=== PATIENT | male | born 1980 | race Caucasian/White ===

== ENCOUNTER 2019-12-21 11:05 | Outpatient (CLI) | payer OTHER ==
--- NOTE | 2019-12-21 13:16 | RAD ---
RIGHT HAND 2 VIEWS: Date: 12/21/2019 HISTORY: Disability exam, right hand pain. FINDINGS/IMPRESSION: No bony abnormalities are identified. POS: [facility]
--- NOTE | 2019-12-21 13:16 | RAD ---
PA AND LATERAL VIEWS CHEST: Date: 12/21/2019 HISTORY: Disability exam. FINDINGS: The cardiomediastinum is normal. The lungs are well expanded and clear. The bony thorax is normal. IMPRESSION: Normal exam. POS: [facility]
--- NOTE | 2019-12-21 13:17 | RAD ---
LEFT KNEE 2 VIEWS: Date: 12/21/2019 HISTORY: Disability exam, left knee pain. FINDINGS/IMPRESSION: No bony abnormality is seen. No joint effusion is identified. POS: [facility]
== END 2019-12-21 11:06 | disposition home or self-care (01) ==
LOC: BICRAD 11:05
PROVIDERS: ATTEND Internal Medicine
DX: Z02.71 Encounter for disability determination (principal)
CPT/HCPCS: 71046